=== PATIENT | male | born 1965 | race Two or more races ===

== ENCOUNTER 2016-06-11 13:51 | Inpatient (IN) | payer MEDICAID, OTHER ==
[~2016-06-11] VITALS: Ht 177.8 cm; Wt 109.9 kg
[2016-06-11 14:12] LABS: GLUCOSE,POINT OF CARE 192 MG/DL (70-110)
[2016-06-11] MEDS ORDERED: IBUP-1547 PO (14:12)
[2016-06-11] MEDS ORDERED: LISI-660 PO (14:12)
[2016-06-11] MEDS ORDERED: RANI150T7 PO (14:12)
[2016-06-11] MEDS ORDERED: FLUO-191 PO (14:12)
[2016-06-11] MEDS ORDERED: METF500T4 PO (14:12)
[2016-06-11] MEDS ORDERED: FLUT16H NASAL (14:12)
[2016-06-11] MEDS ORDERED: GABA-531 PO (14:12)
[2016-06-11] MEDS ORDERED: CETI-260 PO (14:12)
[2016-06-11] MEDS ORDERED: ASPI-1093 PO (14:12)
[2016-06-11 15:40] LABS: BASOPHILS % (AUTO) 0.2 % (0.0-2.0); EOSINOPHILS % (AUTO) 1.8 % (1.0-6.0); HEMATOCRIT 40.2 % (41-53); HEMOGLOBIN 13.5 g/dL (13.5-17.5); LYMPHOCYTES # (AUTO) 2.3 K/uL (1.0-4.8); LYMPHOCYTES % (AUTO) 30.9 % (22.0-44.0); MEAN CORPUSCULAR HEMOGLOBIN 29.7 pg (26.0-34.0); MEAN CORPUSCULAR HGB CONC 33.6 G/dL (31.0-37.0); MEAN CORPUSCULAR VOLUME 88 fL (80-100); MONOCYTES # (AUTO) 0.4 K/uL (0.1-1.0); MONOCYTES % (AUTO) 5.5 % (2.0-9.0); NEUTROPHILS # (AUTO) 4.5 K/uL (1.8-7.7); NEUTROPHILS % (AUTO) 61.6 % (40.0-70.0); PLATELET COUNT (AUTO) 209 K/uL (150-450); RED BLOOD CELL COUNT(AUTO) 4.55 MIL/uL (4.50-5.90); RED CELL DISTRIBUTION WIDTH 12.9 % (11.5-14.5); WHITE BLOOD COUNT (AUTO) 7.3 K/uL (4.5-11.0)
[2016-06-11] MEDS ORDERED: ZOLPIDEM TARTRATE 10 MG TABLET PO PRN (15:45)
[2016-06-11] MEDS ORDERED: LORazepam 2 MG TABLET PO PRN (15:45)
[2016-06-11] MEDS ORDERED: GuaiFENesin/D-METHORPHAN [SUGAR-FREE] 200-20MG/10 ML SYRUP UDCUP PO PRN (15:45)
[2016-06-11] MEDS ORDERED: MAGNESIUM HYDROXIDE SUSPENSION 30 ML UDCUP PO PRN (15:45)
[2016-06-11] MEDS ORDERED: HydrOXYzine PAMOATE 50 MG CAPSULE PO PRN (15:45)
[2016-06-11] MEDS ORDERED: QUEtiapine FUMARATE 100 MG TABLET PO PRN (15:45)
[2016-06-11] MEDS ORDERED: MAG HYDROX/AL HYDROX/SIMETH ES 30 ML SUSPENSION UDCUP PO PRN (15:45)
[2016-06-11] MEDS ORDERED: PROMETHAZINE HCL 25 MG TABLET PO PRN (15:45)
[2016-06-11] MEDS ORDERED: TUBERCULIN, PURIFIED PROTEIN DERIVATIVE 5 TU/0.1 ML SYG ID ONE (15:45)
[2016-06-11] MEDS ORDERED: LOPERAMIDE HCL 2 MG CAPSULE PO PRN (15:45)
[2016-06-11] MEDS ORDERED: ACETAMINOPHEN 325 MG TABLET PO PRN (15:45)
[2016-06-11 15:51] LABS: ANION GAP 11 mmol/L (8-16); CALCIUM, TOTAL 8.9 mg/dL (8.8-10.5); CARBON DIOXIDE 28 mmol/L (22-29); CHLORIDE 101 mmol/L (98-107); CREATININE 1.26 mg/dL (0.60-1.30); GLOMERULAR FILTR. RATE CALC 60 mL/min (>60); POTASSIUM 4.2 mmol/L (3.5-5.1); SODIUM SERUM 140 mmol/L (136-145); UREA NITROGEN, BLOOD 20 mg/dL (7-18)
[2016-06-11 15:56] LABS: ALANINE AMINOTRANSFERASE 37 U/L (12-78); ALBUMIN 4.3 g/dL (3.4-5.0); ASPARTATE AMINOTRANSFERASE 21 U/L (15-37); BILIRUBIN,TOTAL 0.6 mg/dL (0.1-1.0); TOTAL PROTEIN, SERUM 8.6 g/dL (6.4-8.2)
[2016-06-11] MEDS: GABAPENTIN 300 MG CAPSULE PO SCH (16:51)
[2016-06-11] MEDS ORDERED: PNEUMOCOCCAL VACCINE POLYVALENT 0.5 ML VIAL [PPSV23] IM ONE (19:45)
[2016-06-11 20:06] LABS: GLUCOSE,POINT OF CARE 114 MG/DL (70-110)
[2016-06-11] MEDS ORDERED: INSULIN ASPART 100 UNITS/ML SQ PRN (20:45)
[2016-06-11] MEDS ORDERED: GLUCAGON,HUMAN RECOMBINANT 1 MG VIAL IM PRN (20:45)
[2016-06-11] MEDS: THIAMINE HCL 100 MG TABLET PO SCH (21:19)
[2016-06-11 22:23] VITALS: BP 130/86
[2016-06-12 05:08] VITALS: BP 117/75
[2016-06-12 06:06] LABS: GLUCOSE,POINT OF CARE 129 MG/DL (70-110)
[2016-06-12] MEDS: MetFORMIN HCL 500 MG TABLET PO SCH ×2 (06:39→16:25)
[2016-06-12 08:17] VITALS: BP 117/73
[2016-06-12 08:24] LABS: BASOPHILS % (AUTO) 0.4 % (0.0-2.0); EOSINOPHILS % (AUTO) 2.8 % (1.0-6.0); HEMATOCRIT 39.7 % (41-53); HEMOGLOBIN 13.3 g/dL (13.5-17.5); LYMPHOCYTES # (AUTO) 2.4 K/uL (1.0-4.8); LYMPHOCYTES % (AUTO) 34.8 % (22.0-44.0); MEAN CORPUSCULAR HEMOGLOBIN 29.8 pg (26.0-34.0); MEAN CORPUSCULAR HGB CONC 33.5 G/dL (31.0-37.0); MEAN CORPUSCULAR VOLUME 89 fL (80-100); MONOCYTES # (AUTO) 0.5 K/uL (0.1-1.0); MONOCYTES % (AUTO) 7.1 % (2.0-9.0); NEUTROPHILS # (AUTO) 3.8 K/uL (1.8-7.7); NEUTROPHILS % (AUTO) 54.9 % (40.0-70.0); PLATELET COUNT (AUTO) 203 K/uL (150-450); RED BLOOD CELL COUNT(AUTO) 4.45 MIL/uL (4.50-5.90); RED CELL DISTRIBUTION WIDTH 13.1 % (11.5-14.5); WHITE BLOOD COUNT (AUTO) 6.9 K/uL (4.5-11.0)
[2016-06-12 08:50] LABS: ALANINE AMINOTRANSFERASE 37 U/L (12-78); ALBUMIN 4.1 g/dL (3.4-5.0); ANION GAP 9 mmol/L (8-16); ASPARTATE AMINOTRANSFERASE 20 U/L (15-37); BILIRUBIN,TOTAL 0.5 mg/dL (0.1-1.0); CALCIUM, TOTAL 9.2 mg/dL (8.8-10.5); CARBON DIOXIDE 29 mmol/L (22-29); CHLORIDE 103 mmol/L (98-107); CHOL/HDL RATIO 7.4 (4.2-7.3); GLOMERULAR FILTR. RATE CALC > 60 mL/min (>60); POTASSIUM 4.4 mmol/L (3.5-5.1); SODIUM SERUM 141 mmol/L (136-145); THYROID STIMULATING HORMONE 2.25 uIU/mL (0.36-3.74); TOTAL PROTEIN, SERUM 8.1 g/dL (6.4-8.2); UREA NITROGEN, BLOOD 19 mg/dL (7-18)
[2016-06-12 08:54] LABS: HEMOGLOBIN A1C 6.5 % (4.5-6.2)
[2016-06-12] MEDS ORDERED: FLUoxetine HCL 20 MG CAPSULE PO SCH (09:00)
[2016-06-12 09:34] VITALS: BP 122/76
[2016-06-12] MEDS: GABAPENTIN 300 MG CAPSULE PO SCH ×3 (09:34→16:25)
[2016-06-12] MEDS: IBUPROFEN 800 MG TABLET PO PRN (09:34)
[2016-06-12] MEDS: FOLIC ACID 1 MG TABLET PO SCH (09:34)
[2016-06-12] MEDS: THIAMINE HCL 100 MG TABLET PO SCH ×2 (09:34→16:25)
[2016-06-12] MEDS: AmLODIPine BESYLATE 5 MG TABLET PO SCH (09:34)
[2016-06-12] MEDS: ASPIRIN 81 MG CHEWABLE TABLET PO SCH (09:34)
[2016-06-12] MEDS: MULTIVITAMINS WITH MINERALS, THERAPEUTIC TABLET PO SCH (09:34)
[2016-06-12] MEDS: RANITIDINE HCL 150 MG TABLET PO SCH ×2 (09:34→16:25)
[2016-06-12] MEDS: DULoxetine HCL 20 MG CAPSULE PO SCH (09:34)
[2016-06-12 16:08] VITALS: BP 127/74
[2016-06-12 17:47] LABS: GLUCOSE,POINT OF CARE 154 MG/DL (70-110)
[2016-06-13 02:54] VITALS: BP 102/64
[2016-06-13 05:52] LABS: GLUCOSE,POINT OF CARE 118 MG/DL (70-110)
[2016-06-13] MEDS: IBUPROFEN 800 MG TABLET PO PRN (06:29)
[2016-06-13] MEDS: MetFORMIN HCL 500 MG TABLET PO SCH ×2 (06:30→17:08)
[2016-06-13 08:56] VITALS: BP 131/78
[2016-06-13] MEDS: DULoxetine HCL 20 MG CAPSULE PO SCH (09:30)
[2016-06-13] MEDS: MULTIVITAMINS WITH MINERALS, THERAPEUTIC TABLET PO SCH (09:30)
[2016-06-13] MEDS: THIAMINE HCL 100 MG TABLET PO SCH ×2 (09:30→17:08)
[2016-06-13] MEDS: ASPIRIN 81 MG CHEWABLE TABLET PO SCH (09:30)
[2016-06-13] MEDS: FOLIC ACID 1 MG TABLET PO SCH (09:31)
[2016-06-13] MEDS: RANITIDINE HCL 150 MG TABLET PO SCH ×2 (09:31→17:08)
[2016-06-13] MEDS: GABAPENTIN 300 MG CAPSULE PO SCH (09:31)
[2016-06-13] MEDS: AmLODIPine BESYLATE 5 MG TABLET PO SCH (10:44)
[2016-06-13] MEDS: GABAPENTIN 400 MG CAPSULE PO SCH ×2 (13:02→17:08)
[2016-06-13 16:00] VITALS: BP 113/74
[2016-06-13] MEDS ORDERED: DULO20CA30 PO (16:36)
[2016-06-13] MEDS ORDERED: GABA-533 PO (16:36)
[2016-06-13 16:41] LABS: GLUCOSE,POINT OF CARE 123 MG/DL (70-110)
[2016-06-14 06:09] VITALS: BP 118/77
[2016-06-14 06:27] LABS: GLUCOSE,POINT OF CARE 133 MG/DL (70-110)
[2016-06-14] MEDS: MetFORMIN HCL 500 MG TABLET PO SCH (06:51)
[2016-06-14 08:07] LABS: FLUOXETINE (PROZAC) LEVEL 192 ng/mL (91-302); NORFLUOXETINE LEVEL 360 ng/mL (72-258)
[2016-06-14 08:19] VITALS: BP 132/87
[2016-06-14] MEDS: AmLODIPine BESYLATE 5 MG TABLET PO SCH (08:52)
[2016-06-14] MEDS: ASPIRIN 81 MG CHEWABLE TABLET PO SCH (08:52)
[2016-06-14] MEDS: THIAMINE HCL 100 MG TABLET PO SCH (08:53)
[2016-06-14] MEDS: RANITIDINE HCL 150 MG TABLET PO SCH (08:53)
[2016-06-14] MEDS: FOLIC ACID 1 MG TABLET PO SCH (08:53)
[2016-06-14] MEDS: GABAPENTIN 400 MG CAPSULE PO SCH (08:53)
[2016-06-14] MEDS: MULTIVITAMINS WITH MINERALS, THERAPEUTIC TABLET PO SCH (08:53)
[2016-06-14] MEDS ORDERED: DULoxetine HCL 20 MG CAPSULE PO SCH (09:00)
== END 2016-06-14 10:00 | disposition home or self-care (01) | DRG 754 ==
LOC: EMS 13:52 → B2S 17:20
PROVIDERS: ADMIT Psychiatry & Neurology Psychiatry; ATTEND Psychiatry & Neurology Psychiatry
PROC: 3E0234Z Introduction of Serum, Toxoid and Vaccine into Muscle, Percutaneous Approach (ICD-10-PCS; principal; 2016-06-12)
DX: F32.9 Major depressive disorder, single episode, unspecified (principal); E11.42 Type 2 diabetes mellitus with diabetic polyneuropathy; R45.851 Suicidal ideations; M54.9 Dorsalgia, unspecified; M54.2 Cervicalgia; G89.4 Chronic pain syndrome; I10 Essential (primary) hypertension; M19.90 Unspecified osteoarthritis, unspecified site; K21.9 Gastro-esophageal reflux disease without esophagitis; Z91.19 Patient's noncompliance with other medical treatment and regimen; Z65.3 Problems related to other legal circumstances; Z79.84 Long term (current) use of oral hypoglycemic drugs; Z79.82 Long term (current) use of aspirin; Z79.899 Other long term (current) drug therapy; Z23 Encounter for immunization; Z98.890 Other specified postprocedural states
CPT/HCPCS: 80332; 82962; 83036; 84439; 84443; 86592; 90471; 99285; G0480